=== PATIENT | male | born 1950 | race Caucasian/White ===

== ENCOUNTER 2019-05-06 08:23 | Inpatient (IN) ==
[2019-05-06 09:40] LABS: Basophils % 2.3 % (0.0-0.8); Eosinophils % 0.6 % (0.00-10.9); Hematocrit 42.1 VOL% (42.0-52.0); Hemoglobin 13.3 GM/DL (14.0-18.0); Immature Granulocytes % 17.1 %; Lymphocytes # 0.2 10*3/uL (1.4-4.0); Lymphocytes % 8.6 % (21.2-54.2); Mean Corpuscular HGB Conc 31.6 GM/DL (32-36); Mean Corpuscular Volume 90.9 FL (87-102); Monocytes % 12.6 % (1.7-12.7); NRBC # 0.12 10*3/uL; Neutrophils % 58.8 % (38.7-73.9); Red Blood Count 4.63 MC/CUMM (3.8-5.5); Red Cell Distribution Width 18.4 % (9.3-17.3); White Blood Count 1.8 T/CUMM (4-12)
[2019-05-06 09:48] LABS: Platelet Count 28 T/CUMM (130-400)
[2019-05-06 10:04] LABS: Albumin 2.6 G/DL (3.4-5.0); Bilirubin,Total 2.1 MG/DL (0.2-1.0); Calcium 7.5 MG/DL (8.5-10.1); Osmolality,Calculated 286.8 MOS/KG (273-304); Total Protein 6.4 G/DL (6.4-8.3)
[2019-05-06 10:11] LABS: Band Neutrophils 4 % (0-10); Eosinophils 2 % (0-10); Hypochromasia 1+; Lymphocytes 13 % (20-55); Metamyelocytes 2 %; Microcytosis 1+; Nucleated Red Blood Cells 8 (0-5); Ovalocytes Slight; Segmented Neutrophils 69 % (50-85); Total Cells Counted 100
[2019-05-06 10:12] LABS: Platelet Estimate Decreased; Tear Drop Cells Slight
[2019-05-06] MEDS ORDERED: cefTRIAXone 1,000 MG in SODIUM CHLORIDE 0.9% 100 ML IV STA (10:23)
[2019-05-06] MEDS ORDERED: cefTRIAXone 1,000 MG in SYRINGE 1 EACH IV STA (10:27)
[2019-05-06] MEDS ORDERED: ONDANSETRON 4 MG/2 ML VIAL IV PRN (11:23)
[2019-05-06] MEDS ORDERED: traMADol 50 MG TABLET PO PRN (11:23)
[2019-05-06 11:32] LABS: Amorphous Crystals,Urine Occasional /HPF (Few); Apearance,Urine CLEAR (Clear); Bacteria,Urine Occasional /HPF (Few); Bilirubin,Urine Negative (Negative); Blood, Urine Negative (Negative); Glucose,Urine (UA) Negative (Negative); Ketones,Urine Negative (Negative); Mucus,Urine Occasional /LPF (Occasional); Nitrite,Urine Negative (Negative); Protein,Urine 30 MG/DL; RBC,Urine 1 /HPF (0-4); Squamous Epithelial Cell,Urine Occasional /HPF (0-10); Urine Specific Gravity 1.017 (1.001-1.035); WBC,Urine <1 /HPF (0-6)
[2019-05-06 11:35] LABS: Urine Color Yellow (Yellow)
[2019-05-06 12:16] LABS: Thyroid Stimulating Hormone 0.662 uIU/ml (0.358-3.74)
[2019-05-06] MEDS: oxyCODONE ER 10 MG TABLET PO SCH ×2 (14:33→20:17)
[2019-05-06] MEDS ORDERED: NALOXONE 0.4 MG/ML VIAL IV PRN (15:46)
[2019-05-06] MEDS: HYDROmorphone PCA 30 MG/30 ML SYRINGE IV SCH (17:18)
[2019-05-06] MEDS: DOCUSATE SODIUM 100 MG CAPSULE PO SCH (20:17)
[2019-05-06] MEDS: METOPROLOL TARTRATE 25 MG TABLET PO SCH (20:17)
[2019-05-06] MEDS: FERROUS SULFATE 325 MG TABLET PO SCH (20:17)
[2019-05-06] MEDS: SPIRONOLACTONE 50 MG TABLET PO SCH (20:17)
[2019-05-07 04:07] LABS: Eosinophils % 0.5 % (0.00-10.9); Hematocrit 26.7 VOL% (42.0-52.0); Hemoglobin 8.3 GM/DL (14.0-18.0); Immature Granulocytes % 15.8 %; Immature Granulocytes Absolute 0.61 #; Lymphocytes # 0.5 10*3/uL (1.4-4.0); Lymphocytes % 12.7 % (21.2-54.2); Mean Corpuscular HGB Conc 31.1 GM/DL (32-36); Mean Platelet Volume 11.8 FL (9.6-12.0); Monocytes % 17.6 % (1.7-12.7); Neutrophils % 52.4 % (38.7-73.9); Platelet Count 40 T/CUMM (130-400); Red Blood Count 2.84 MC/CUMM (3.8-5.5); Red Cell Distribution Width 18.2 % (9.3-17.3); White Blood Count 3.9 T/CUMM (4-12)
[2019-05-07 04:25] LABS: Albumin 2.6 G/DL (3.4-5.0); Bilirubin,Total 1.7 MG/DL (0.2-1.0); Calcium 7.3 MG/DL (8.5-10.1); Total Protein 6.5 G/DL (6.4-8.3)
[2019-05-07 04:58] LABS: Band Neutrophils 9 % (0-10); Lymphocytes 22 % (20-55); Metamyelocytes 2 %; Nucleated Red Blood Cells 9 (0-5); Platelet Estimate Decreased; Segmented Neutrophils 53 % (50-85); Total Cells Counted 100
[2019-05-07 04:59] LABS: Anisocytosis 1+; Hypochromasia Slight; Microcytosis Slight; Ovalocytes Slight; Polychromasia Few
[2019-05-07] MEDS ORDERED: PANTOPRAZOLE 40 MG TABLET PO SCH (09:00)
[2019-05-07] MEDS ORDERED: amLODIPine 10 MG TABLET PO SCH (09:00)
[2019-05-07] MEDS ORDERED: DEXAMETHASONE 4 MG TABLET PO SCH (09:00)
[2019-05-07] MEDS: SPIRONOLACTONE 50 MG TABLET PO SCH ×2 (10:07→20:41)
[2019-05-07] MEDS: FERROUS SULFATE 325 MG TABLET PO SCH ×2 (10:07→20:41)
[2019-05-07] MEDS: METOPROLOL TARTRATE 25 MG TABLET PO SCH ×2 (10:07→20:41)
[2019-05-07] MEDS: DOCUSATE SODIUM 100 MG CAPSULE PO SCH ×2 (10:07→20:41)
[2019-05-07] MEDS: oxyCODONE ER 10 MG TABLET PO SCH ×2 (10:07→20:41)
[2019-05-07] MEDS ORDERED: FILGRASTIM-SNDZ 300 MCG/0.5 ML SYRINGE SUBCUT SCH (11:30)
[2019-05-07] MEDS: HYDROmorphone PCA 30 MG/30 ML SYRINGE IV SCH (15:48)
[2019-05-07 20:24] VITALS: BP 87/46
[2019-05-08] MEDS: HYDROmorphone PCA 30 MG/30 ML SYRINGE IV SCH (02:29)
[2019-05-08 05:18] LABS: Basophils % 0.5 % (0.0-0.8); Eosinophils % 0.3 % (0.00-10.9); Hematocrit 26.1 VOL% (42.0-52.0); Hemoglobin 7.6 GM/DL (14.0-18.0); Immature Granulocytes % 9.7 %; Immature Granulocytes Absolute 0.57 #; Lymphocytes % 16.3 % (21.2-54.2); Mean Corpuscular HGB Conc 29.1 GM/DL (32-36); Mean Corpuscular Volume 99.2 FL (87-102); Mean Platelet Volume 10.8 FL (9.6-12.0); Monocytes % 12.7 % (1.7-12.7); NRBC # 0.72 10*3/uL; Neutrophils % 60.5 % (38.7-73.9); Red Blood Count 2.63 MC/CUMM (3.8-5.5); Red Cell Distribution Width 18.5 % (9.3-17.3); White Blood Count 5.9 T/CUMM (4-12)
[2019-05-08 05:51] LABS: Albumin 2.2 G/DL (3.4-5.0); Bilirubin,Total 1.2 MG/DL (0.2-1.0); Calcium 6.6 MG/DL (8.5-10.1); Osmolality,Calculated 291.2 MOS/KG (273-304)
[2019-05-08 06:10] LABS: Platelet Count 31 T/CUMM (130-400)
[2019-05-08 06:26] LABS: Lymphocytes 29 % (20-55); Nucleated Red Blood Cells 5 (0-5); Platelet Estimate Decreased; Polychromasia Few; Segmented Neutrophils 65 % (50-85); Total Cells Counted 100
== END 2019-05-08 05:26 | disposition expired | DRG 947 ==
LOC: N.ED 08:23 → SUATTDRO 10:58 → N.EDINP 10:58 → N.4E 12:56
PROVIDERS: ADMIT Internal Medicine Geriatric Medicine; ATTEND Internal Medicine